=== PATIENT | female | born 1960 | race American Indian/Alaskan Native ===

== ENCOUNTER 2016-12-28 11:02 | Emergency (ER) | payer MEDICARE ==
[2016-12-28 21:19] LABS: Bilirubin,Urine NEG (Negative); Blood,Urine NEG (Negative); Ketones,Urine NEG (Negative); Leukocyte Esterase,Urine SM (Negative); Mucus,Urine FEW /HPF; Nitrite,Urine NEG (Negative); Urobilinogen,Urine < 2.0 mg/dL (<2.0)
[2016-12-28] MEDS ORDERED: DILAUDID IM ONE (22:07)
--- NOTE | 2016-12-28 22:11 | Emergency Department Report ---
ED Lower Extremity HPI - General Chief Complaint: Pain General Stated Complaint: PAIN LEFT FOOT/LEFT SIDE Time Seen by Provider: 12/28/16 22:07 Source: patient Mode of arrival: Wheelchair Limitations: Physical Limitation - History of Present Illness MD Complaint: ankle injury, foot injury -: Gradual Injury: Ankle: Left, Foot: Left Type of Injury: unknown Place: home Severity: moderate Severity scale (0 -10): 4 Improves With: nothing Worsens With: weight bearing, movement, palpation Treatments Prior to Arrival: cold therapy - Related Data Previous Rx's Medication Instructions Recorded Last Taken Type HYDROcodone/APAP 5-325 [[place] 1 each PO BID #14 tablet 12/28/16 Unknown Rx 5/325] Allergies Allergy/AdvReac Type Severity Reaction Status Date / Time lisinopril [From Prinivil] AdvReac PRODUCTIVE Verified 08/17/15 12:00 COUGH ED Review of Systems ROS: Stated complaint: PAIN LEFT FOOT/LEFT SIDE Other details as noted in HPI Comment: All other systems reviewed and negative ED Past Medical Hx - Past Medical History Hx Hypertension: Yes Hx Heart Attack/AMI: Yes Hx Congestive Heart Failure: Yes Hx Diabetes: Yes Hx GERD: Yes Hx Renal Disease: Yes - Surgical History Hx Internal Defibrillator: Yes Hx Appendectomy: Yes Hx Breast Surgery: Yes (RIGHT MASTECTOMY ; RECONSTRUCTION) Additional Surgical History: HYSTERECTOMY. TUBAL LIGATION - Social History Smoking Status: Never Smoker Substance Use Type: None - Medications Home Medications: Home Medications Medication Instructions Recorded Confirmed Last Taken Type HYDROcodone/APAP 5-325 [[place] 1 each PO BID #14 tablet 12/28/16 Unknown Rx 5/325] ED Physical Exam - General Limitations: Physical Limitation General appearance: alert, in no apparent distress - Head Head exam: Present: atraumatic, normocephalic - Eye Eye exam: Present: normal appearance - ENT ENT exam: Present: mucous membranes moist - Neck Neck exam: Present: normal inspection - Respiratory Respiratory exam: Present: normal lung sounds bilaterally. Absent: respiratory distress - Cardiovascular Cardiovascular Exam: Present: regular rate, normal rhythm. Absent: systolic murmur, diastolic murmur, rubs, gallop - GI/Abdominal GI/Abdominal exam: Present: soft, normal bowel sounds - Extremities Exam Extremities exam: Present: normal inspection, tenderness, pedal edema ( tenderness all over the left foot , no erythema on exam moderate amount of pitting edema .) - Back Exam Back exam: Present: normal inspection - Neurological Exam Neurological exam: Present: alert, oriented X3 - Psychiatric Psychiatric exam: Present: normal affect, normal mood - Skin Skin exam: Present: warm, dry, intact, normal color. Absent: rash ED Course Vital Signs 12/28/16 12/28/16 12/28/16 11:13 20:19 23:23 Temperature 98.6 F Pulse Rate 74 77 74 Respiratory 16 16 16 Rate Blood Pressure 128/65 Blood Pressure 146/81 162/89 [Left] O2 Sat by Pulse 96 97 95 Oximetry ED Lower Extremity MDM - Radiology Data Radiology results: image reviewed - Medical Decision Making patient doing well here in the ER, pain is controlled after dilaudid IM, no evidence of any fracture on xray. already was seen by podiatry and awaiting on results of her studies Critical care attestation.: If time is entered above; I have spent that time in minutes in the direct care of this critically ill patient, excluding procedure time. ED Disposition Clinical Impression: Foot pain Disposition: DC-01 TO HOME OR SELFCARE Is pt being admited?: No Does the pt Need Aspirin: No Condition: Stable Prescriptions: HYDROcodone/APAP 5-325 [[place] 5/325] 1 each PO BID #14 tablet Referrals: JOSE LEONARD MD [Other] - 3-5 Days
--- NOTE | 2016-12-28 23:05 | XRay Report ---
FINAL REPORT EXAM: XR FOOT 3 LT HISTORY: pain and swelling COMPARISON: None available. FINDINGS: Three views of the left foot obtained. Diffuse osteopenia. Mild diffuse soft tissue swelling. Tiny plantar calcaneal spur. No acute fracture dislocation. IMPRESSION: No acute bony abnormality.
--- NOTE | 2016-12-28 23:06 | XRay Report ---
FINAL REPORT EXAM: XR SPINE LUMBOSACRAL 2-3V HISTORY: back pain COMPARISON: None available. FINDINGS: AP and lateral views of the lumbar spine obtained. There is mild depression along the endplates throughout the lumbar spine likely relating to prominent Schmorl's node deformity. Subtle acute endplate compression deformity cannot be entirely excluded. Disc heights are grossly preserved. Mild anterior endplate osteophyte L2-L3 level. IMPRESSION: Mild depression along the endplates throughout the lumbar spine suspected to relate to prominent Schmorl's node deformities and degenerative change. Subtle acute superior endplate compression deformity cannot be excluded. If the patient has persistent pain, MRI may be of benefit for further evaluation.
[2016-12-28 23:24] VITALS: BP 162/89
== END 2016-12-28 23:30 | disposition home or self-care (01) ==
LOC: ED 11:02
DX: M79.672 Pain in left foot (principal); I11.0 Hypertensive heart disease with heart failure; I50.9 Heart failure, unspecified; E11.9 Type 2 diabetes mellitus without complications; I25.2 Old myocardial infarction; K21.9 Gastro-esophageal reflux disease without esophagitis; Z95.810 Presence of automatic (implantable) cardiac defibrillator; Z90.710 Acquired absence of both cervix and uterus; Z98.51 Tubal ligation status; Z88.8 Allergy status to other drugs, medicaments and biological substances
CPT/HCPCS: 72100; 73630; 81001; 96372; 99283; J1170